=== PATIENT | male | born 1960 | race Caucasian/White ===

== ENCOUNTER 2017-03-10 13:30 | Emergency (ER) | payer OTHER ==
[~2017-03-10] VITALS: Ht 165.1 cm; Wt 88.3 kg
[~2017-03-10 13:30] MED LIST: ASPIR-TRIN325 M1 PO; ASPIRIN EC325 MG PO; ASPIRIN325 MG PO; CELECOXIB200 MG PO; CHANTIX0.5 MG PO; Combivent IH; DELTASONE20 MG PO; ENDOCET 5-3251 EACH PO; FLEXERIL10 MG PO; KLONOPIN1 MG PO; LEXAPRO10 MG PO; LIBRIUM25 MG PO; LISINOPRIL20 MG PO; LISINOPRIL5 MG PO; LOPRESSOR25 MG PO; MOTRIN800 MG PO; OXYCODONE HCL5 MG PO; OXYCODONE-ACET1 EACH PO; OXYCONTIN10 MG PO; PERCOCET 5-3251 EACH PO; PERCOCET 5/31 TABLET PO; ROXICODONE5 MG PO; Robitussin, Organidi PO; SENNA-TIME S T1 EACH PO; SIMVASTATIN20 MG PO; SIMVASTATIN40 MG PO; TAMIFLU75 MG PO; VICODIN 5-3001 EACH PO; ZITHROMAX500 MG PO; ZOLOFT50 MG PO
[2017-03-10 14:06] LABS: HEMATOCRIT 43.4 % (38.0-50.0); MCH 30.5 PG (29.0-34.0); MCHC 32.5 G/DL (30.0-36.0); MCV 93.9 FL (86-99); MEAN PLAT.VOLUME 8.9 uM^3 (9.0-12.4); PLATELET COUNT 335 K/uL (156-360); RBC DIS.WIDTH-CV 11.9 % (11.8-14.6); RBC DIS.WIDTH-SD 40.7 % (39-53); RED BLOOD COUNT 4.62 M/uL (4.00-5.50); WHITE BLOOD COUNT 9.8 K/uL (4.1-10.2)
[2017-03-10 14:15] LABS: CHLORIDE 98 mEq/L (99-109); POTASSIUM 4.8 mEq/L (3.7-5.4); SODIUM 140 mEq/L (136-147)
[2017-03-10 14:16] LABS: GLUCOSE 97 mg/dL (70-99)
[2017-03-10 14:18] LABS: ANION GAP 11 MEQ/L (2-14)
[2017-03-10 14:20] LABS: GFR ESTIMATE (CALCULATED) > 59 mL/min/
[2017-03-10 14:21] LABS: UREA NITROGEN (BUN) 9 mg/dL (9-23)
[2017-03-10] MEDS ORDERED: PREDNISONE20 MG PO (16:39)
[2017-03-10] MEDS ORDERED: VENTOLIN HFA18 GM IH (16:39)
[2017-03-10] MEDS ORDERED: CHERATUSSIN AC473 ML PO (16:39)
[2017-03-10 17:05] VITALS: BP 141/85
== END 2017-03-10 17:05 | disposition home or self-care (01) ==
LOC: EME 13:30
DX: J44.1 Chronic obstructive pulmonary disease with (acute) exacerbation (principal); R09.3 Abnormal sputum; B19.20 Unspecified viral hepatitis C without hepatic coma; M19.90 Unspecified osteoarthritis, unspecified site; F41.9 Anxiety disorder, unspecified; F32.9 Major depressive disorder, single episode, unspecified; F17.200 Nicotine dependence, unspecified, uncomplicated
CPT/HCPCS: 71020; 80048; 85027; 94640; 99281; 99284; J7512